=== PATIENT | male | born 1985 | race Caucasian/White ===

== ENCOUNTER 2022-03-08 23:44 | Emergency (ER) | payer OTHER ==
[~2022-03-08] VITALS: Ht 180.3 cm; Wt 90.7 kg
[2022-03-09] MEDS ORDERED: TAMIFLU75 MG PO (02:31)
--- NOTE | 2022-03-10 21:52 | EKG ---
[facility] [address] [place] [address] Signed Sinus tachycardia with short MD Otherwise normal ECG No previous ECGs available Confirmed by Aamir Dumont MD () on 03/10/2022 9:52:34 PM Electronically Signed By: AAMIR DUMONT MD 03/10/222151 PATIENT NAME: AMEENA GIBSON Electrocardiogram DATE OF : 89 PHYSICIAN: AAMIR DUMONT MD REPORT #: [id number] REPORT IS CONFIDENTIAL AND NOT TO BE RELEASED WITHOUT AUTHORIZATION
== END 2022-03-09 03:08 | disposition home or self-care (01) ==
LOC: ED 23:44
DX: J10.1 Influenza due to other identified influenza virus with other respiratory manifestations (principal); E86.0 Dehydration; Z20.822 Contact with and (suspected) exposure to COVID-19; Z88.2 Allergy status to sulfonamides; Z88.0 Allergy status to penicillin
CPT/HCPCS: 36415; 71045; 80053; 81001; 82553; 83605; 83690; 83735; 84484; 85025; 87502; 93005; 93010; 96361; 96374; 99284-25; A9270; C9803; J2405; J7121; U0003

== ENCOUNTER 2022-08-20 18:29 | Emergency (ER) | payer OTHER ==
[~2022-08-20] VITALS: Ht 180.3 cm; Wt 135.4 kg
[~2022-08-20 18:29] MED LIST: TAMIFLU75 MG PO
[2022-08-20] MEDS ORDERED: HYDROCODON-ACE1 EA10 PO (19:17)
[2022-08-20 20:12] VITALS: BP 132/94
== END 2022-08-20 20:05 | disposition home or self-care (01) ==
LOC: ED 18:29
DX: T21.12XA Burn of first degree of abdominal wall, initial encounter (principal); T22.112A Burn of first degree of left forearm, initial encounter; T31.0 Burns involving less than 10% of body surface; F43.10 Post-traumatic stress disorder, unspecified; Z88.2 Allergy status to sulfonamides; Z88.0 Allergy status to penicillin; Z23 Encounter for immunization
CPT/HCPCS: 16000; 90471; 90714; 99283-25; A9270

== ENCOUNTER 2024-10-01 02:13 | Emergency (ER) | payer OTHER ==
[~2024-10-01] VITALS: Ht 180.3 cm; Wt 126.2 kg
[~2024-10-01 02:13] MED LIST changes: +HYDROCODON-ACE1 EA10 PO
[2024-10-01] MEDS ORDERED: MELOXICAM15 MG PO (03:43)
[2024-10-01] MEDS ORDERED: TRAMADOL HCL 50 MG HOME.PACK PO ONE (03:45)
[2024-10-01 03:59] VITALS: BP 143/97
== END 2024-10-01 03:59 | disposition home or self-care (01) ==
LOC: ED 02:13
DX: S00.03XA Contusion of scalp, initial encounter (principal); Z88.2 Allergy status to sulfonamides; Z88.0 Allergy status to penicillin; Y04.2XXA Assault by strike against or bumped into by another person, initial encounter
CPT/HCPCS: 70450; 99284-25; A9270